=== PATIENT | male | born 1950 | race Caucasian/White ===

== ENCOUNTER → 2020-05-02 | Day surgery (SDC) | payer MEDICARE, BC ==
[2020-04-29 13:17] LABS: BASOPHILS # (AUTO) 0.1 (0.0-0.1); BASOPHILS % 0.7 % (0.0-1.0); EOSINOPHILS # (AUTO) 0.1 (0.0-0.4); EOSINOPHILS % 1.4 % (0.0-6.0); HEMATOCRIT 34.6 % (38.2-49.6); HEMOGLOBIN 11.2 g/dL (14.0-18.0); LYMPHOCYTES # (AUTO) 2.3 (1.0-3.2); LYMPHOCYTES % 31.2 % (18.0-39.1); MEAN CORPUSCULAR HEMOGLOBIN 29.9 pg (28-32); MEAN CORPUSCULAR HGB CONC 32.4 g/dL (31-35); MEAN CORPUSCULAR VOLUME 92.3 fL (81-99); MONOCYTES # (AUTO) 0.4 (0.2-0.8); MONOCYTES % 5.8 % (4.4-11.3); NEUTROPHILS # (AUTO) 4.5 (2.1-6.9); NEUTROPHILS % 60.6 % (38.7-80.0); PLATELET COUNT 296 x10e3/uL (140-360); RED BLOOD COUNT 3.75 x10e6/uL (4.3-5.7); RED CELL DISTRIBUTION WIDTH 13.8 % (11.7-14.4)
[~2020-05-02] MED LIST: EPHEDRINE SULFATE INJ 50 MG/ML VIAL ONE; FENTANYL CITRATE/PF 100MCG/2 ML INJ ONE; GLIPIZIDE PO; HYOSCYAMINE 0.125 MG TAB ONE; LIPITOR80 MG PO; LISINOPRIL20 MG PO; MELOXICAM PO; METFORMIN HCL500 MG PO; MIDAZOLAM HCL 2 MG/2 ML VIAL ONE; PIOGLITAZONE HC45 MG PO; PROPOFOL IV EMULSION 50 ML IV ONE; TRICOR145 MG PO
[2020-05-02 12:45] LABS: WBC,FECAL (FECAL LACTOFERRIN) NEGATIVE (NEGATIVE)
[2020-05-02 13:10] VITALS: BP 103/60
[2020-05-02 13:30] LABS: % IRON SATURATION 6 % (15-50); IRON 38 ug/dL (65-175); TOTAL IRON BINDING CAPACITY 602 ug/dL (261-478); TRANSFERRIN 430 mg/dL (174-364)
[2020-05-02 15:16] LABS: C DIFFICILE TOXIN A&B AMP PROB NEGATIVE (NEGATIVE)
--- NOTE | 2020-05-02 19:25 | Operative Report ---
DATE OF PROCEDURE: 05/02/2020 SURGEON: Bernard Wong MD PROCEDURES: EGD with biopsies and colonoscopy with polypectomy. INDICATIONS FOR EGD: Anemia. INDICATIONS FOR COLONOSCOPY: Surveillance colonoscopy, personal history of colon polyps, anemia, diarrhea. MEDICATIONS: The patient was done under MAC, please see anesthesiologist's note. PROCEDURE IN DETAIL: With the patient in left lateral decubitus position, a flexible fiberoptic Olympus gastroscope was introduced into the esophagus under direct visualization without any difficulty. There was some patchy erythema noted in distal esophagus. The scope was then advanced with ease into the stomach. Mucosa overlying the antrum and the body revealed some patchy erythema and heyp-ha-ghrnamoa edema, and biopsies were obtained, and sent to stain for H. pylori. Pylorus was of normal contour and shape, it was intubated with ease and the scope was advanced all the way to the second portion of the duodenum. A minute nodule was noted in the proximal second portion, that was biopsied. Also, biopsies were obtained from the second portion and duodenal bulb to rule out sprue. Minute aphthous like ulcers were noted in the duodenal bulb. The scope was then withdrawn back into the stomach and retroflexed, mucosa overlying the fundus and cardia appeared to be within normal limits. The scope was then straightened out, it was subsequently withdrawn. The patient tolerated the procedure well. IMPRESSION: 1. Distal esophagitis, mild. 2. Gastritis, biopsied, biopsies sent to stain for H. pylori. 3. Rule out sprue. 4. Minute nodule, proximal second portion, biopsied. PLAN: 1. Follow up histology. 2. Initiate Protonix 40 mg one p.o. q.a.m. a.c. DESCRIPTION OF PROCEDURE: The patient was then turned around and after adequate lubrication of the anal canal, a flexible fiberoptic Olympus colonoscope was inserted into the rectum with ease and advanced all the way to the cecum. Mucosa overlying the cecum appeared to be within normal limits. The ileocecal valve was intubated and the scope was advanced into the terminal ileum. Biopsies were obtained. The scope was then withdrawn slowly, mucosa overlying the cecum and ascending colon appeared to be within normal limits. A minute polyp was removed per cold biopsy forceps from the transverse colon. One polyp was removed per cold biopsy forceps in the transverse colon. One polyp was hot biopsied, one polyp was removed per cold biopsy forceps from the descending colon. Mild patchy inflammatory changes were noted in the descending colon as well as the sigmoid and random biopsies were obtained. The scope was then retroflexed into the distal rectum and moderate-sized internal hemorrhoids were noted, none of which was actively bleeding. The scope was then straightened out, it was subsequently withdrawn after securing an adequate stool specimen, that was sent for the appropriate stool studies. The patient tolerated the procedure well. IMPRESSION: 1. Transverse colon polyp, cold biopsied. 2. Descending colon polyps x2, one cold biopsied, one hot biopsied. 3. Mild patchy left-sided colitis. 4. Proctitis, mild. 5. Internal hemorrhoids, none actively bleeding. PLAN: 1. Follow up histology. 2. Follow up stool studies. 3. Initiate VSL #3 one p.o. b.i.d. Bentyl 10 mg one p.o. t.i.d. 4. The patient might benefit from a followup colonoscopy in 3 years. 5. The patient might benefit from small bowel series to rule out small bowel pathology, that might be contributing to the patient's anemia. Bernard Wong MD [facility] /[id number] cc: Rod Hood DO
[2020-05-05 16:47] LABS: FOLATE 22.6 ng/mL (7.0-15.4)
== END | disposition home or self-care (01) ==
LOC: OR 08:27
PROVIDERS: ATTEND Internal Medicine Gastroenterology
DX: D64.89 Other specified anemias (principal); D12.3 Benign neoplasm of transverse colon; D12.4 Benign neoplasm of descending colon; K29.50 Unspecified chronic gastritis without bleeding; K26.9 Duodenal ulcer, unspecified as acute or chronic, without hemorrhage or perforation; K51.50 Left sided colitis without complications; K20.9 Esophagitis, unspecified; K44.9 Diaphragmatic hernia without obstruction or gangrene; K31.89 Other diseases of stomach and duodenum; K62.89 Other specified diseases of anus and rectum; K64.8 Other hemorrhoids; E11.9 Type 2 diabetes mellitus without complications; I10 Essential (primary) hypertension; E78.5 Hyperlipidemia, unspecified; I44.0 Atrioventricular block, first degree; M19.90 Unspecified osteoarthritis, unspecified site; H91.90 Unspecified hearing loss, unspecified ear; R05 Cough; F17.210 Nicotine dependence, cigarettes, uncomplicated; Z88.8 Allergy status to other drugs, medicaments and biological substances; Z01.810 Encounter for preprocedural cardiovascular examination; Z01.812 Encounter for preprocedural laboratory examination; Z11.59 Encounter for screening for other viral diseases; Z79.84 Long term (current) use of oral hypoglycemic drugs; Z68.32 Body mass index [BMI] 32.0-32.9, adult; Z80.0 Family history of malignant neoplasm of digestive organs
CPT/HCPCS: 36415 ×2; 43239; 45380; 45384; 82607; 82746; 82948; 83540; 83630; 83993; 84466; 85025; 85045; 87045; 87177; 87328; 87493; 87635; 88305; 88312; 93005; J2250; J2704; J3010

== ENCOUNTER → 2020-06-09 | Outpatient (CLI) | payer MEDICARE, BC, OTHER ==
[~2020-06-09] MED LIST changes: -EPHEDRINE SULFATE INJ 50 MG/ML VIAL ONE; -FENTANYL CITRATE/PF 100MCG/2 ML INJ ONE; -HYOSCYAMINE 0.125 MG TAB ONE; -MIDAZOLAM HCL 2 MG/2 ML VIAL ONE; -PROPOFOL IV EMULSION 50 ML IV ONE
--- NOTE | 2020-06-09 14:54 | Diagnostic Imaging Report ---
FLUOROSCOPIC SMALL BOWEL SERIES CROSSCUTTER(S): Trent Bowen MD Indication: Anemia Comparison: None. Radiation Dose: Total dose: 26.2 mGy Total fluoroscopy time: 1.6 minutes Procedure: Small bowel follow through exam was performed using oral barium. Preliminary image was obtained before administration of contrast and serial overhead images were obtained after administration of oral barium. Fluoroscopy was performed and spot images were obtained. 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 No acute bony abnormality. Atherosclerotic arterial calcifications. STOMACH: Unremarkable mucosal pattern. SMALL BOWEL: Bulb and sweep are normal. Duodenal-jejunal junction is in the normal expected position. Small bowel loops are normal in caliber and distribution. There is no evidence of fistula, mucosal changes, stricture or dilation. The transit time was within normal limits. COLON: Partially visualized proximal colon is unremarkable. IMPRESSION: Unremarkable fluoroscopic small bowel series. Signed by: Trent Bowen MD on 06/09/2020 2:51 PM
== END ==
LOC: DX 08:19
PROVIDERS: ATTEND Internal Medicine Gastroenterology
DX: D64.89 Other specified anemias (principal)
CPT/HCPCS: 74250; U0002